=== PATIENT | female | born 1975 | race Caucasian/White ===

== ENCOUNTER 2018-05-02 09:54 | Emergency (ER) | payer BC, OTHER ==
[2018-05-02 10:33] VITALS: BMI 20.7
--- NOTE | 2018-05-02 10:54 | PDOC ---
History of Present Illness - General Chief Complaint: Pain Stated Complaint: ABD PAIN Time Seen by Provider: 05/02/18 10:45 - History of Present Illness Initial Comments: 05/02/18 10:55 The patient is a 42 year old female with a PMH of ectopic who presents to our ED c/o acute onset of abdominal pain. Pain started when patient was walking at work and is "sharp" localized to her B/L lower quadrants and has since resolved. Endorses nausea w/o vomiting. No fevers/chills. Also denies dysuria/hematuria. LMP was March 2018. Patient states she is sexually active with one male partner, her , and he does not ejaculate inside of her as control. No h/o STI's. Last pap smear in 2015 and was normal. NKDA Surgical: L fallopian tube resection. Social: denies toxic habits PMD: None, recieves primary care from household appliance installer @ [facility] As per EMR, patient was evaluated for L tubal in 2011. No previous h/ o of ED evaluation in EMR. Past History - Past Medical History Allergies/Adverse Reactions: Allergies Allergy/AdvReac Type Severity Reaction Status Date / Time No Known Drug Allergies Allergy Verified 05/02/18 10:31 Home Medications: Ambulatory Orders Cholecalciferol (Vitamin D3) [Vitamin D] 400 unit PO 02/10/12 Folic Acid - 2 mg PO DAILY 02/10/12 Vitamin B Complex 1 each PO 02/10/12 Anemia: No Asthma: No Cancer: No Cardiac Disorders: No CVA: No COPD: No CHF: No Dementia: No Diabetes: No GI Disorders: No Disorders: No HTN: No Hypercholesterolemia: No Liver Disease: No Seizures: No Thyroid Disease: No - Suicide/Smoking/Psychosocial Hx Smoking History: Never smoked Have you smoked in the past 12 months: No Information on smoking cessation initiated: No Hx Alcohol Use: No Drug/Substance Use Hx: No Substance Use Type: None Hx Substance Use Treatment: No *Physical Exam - Vital Signs Last Vital Signs Temp Pulse Resp BP Pulse Ox 98.7 F 73 16 112/74 100 05/02/18 10:00 05/02/18 10:00 05/02/18 10:00 05/02/18 10:00 05/02/18 10:00 - Physical Exam General Appearance: Yes: Nourished, Appropriately Dressed HEENT: positive: Normal Voice, Hearing Grossly Normal Neck: positive: Trachea midline, Supple Respiratory/Chest: positive: Lungs Clear. negative: Labored Respiration, Rapid RR Cardiovascular: positive: S1, S2. negative: Edema, JVD Gastrointestinal/Abdominal: positive: Normal Bowel Sounds, Soft. negative: Guarding, Rebound, Tenderness, Hernia, Mass Musculoskeletal: negative: CVA Tenderness (R), CVA Tenderness (L) Extremity: positive: Normal Capillary Refill, Normal Inspection Integumentary: positive: Normal Color, Dry, Warm Neurologic: positive: Fully Oriented, Alert ED Treatment Course - LABORATORY CBC & Chemistry Diagram: 05/02/18 11:33 05/02/18 14:50 Medical Decision Making - Medical Decision Making 05/02/18 11:02 42 year old non-toxic appearing female with B/L pelvic pain. PE significant for suprapubic TTP. DDx includes: adnexal pathology including, ruptured ovarian cyst, ovarian torsion, ectopic as well as UTI, gastritis. Will obtain basic labs, urine , pelvic exam, TVUS. Patient declining pain medication at this time. Reassess. 05/02/18 12:31 No leukocytosis CMP hemolyzed. Urine HCG and Beta HCG positive -- heightened clinical suspicion for ectopic until proven otherwise Patient @ TVUS 05/02/18 14:23 TVUS shows no torsion, R ovarian hemorrhagic cyst (1.7 x 1.6 x 1.6) with free fluid in the adnexa. No IUP visualized, however thickened endometrial stripe c/w early . 05/02/18 15:24 Patient counseled extensively on importance of follow-up with household appliance installer in 2 days for repeat B-HCG and TVUS. 05/02/18 15:45 Call placed to office of Dr. Inez Randolph MD - onjz message regarding need for repeat B-HCG and TVUS. 05/02/18 16:08 CMP unremarkable Beta quant pending 05/02/18 16:14 Beta Quant 1599 - c/w 2-3 week gestation, fits clinical picture of LMP in late March. Patient again counseled on importance of OB-School Community Relations Coordinator follow-up, given copy of labs and TVUS, return precautions and discharged home. I discussed the physical exam findings, ancillary test results and final diagnoses with the patient. I answered all of the patient's questions. The patient was satisfied with the care received and felt comfortable with the discharge plan and treatment plan. The patient will return to the Emergency Department with any new, persistent or worsening symptoms. *DC/Admit/Observation/Transfer Diagnosis at time of Disposition: Abdominal pain - Discharge Dispostion Disposition: HOME Condition at time of disposition: Good Decision to Admit order: No - Referrals Referrals: Deanna Ceballos MD [Staff Physician] - - Patient Instructions Additional Instructions: A copy of your ultrasound and your labs have been provided to you. Your urine and serum tests were positive. You can take Tylenol (up to 4000 mg daily) for your pain. At this time, you are safe for discharge home, however it is very important that you follow-up as instructed in the next 48 hours. Please follow-up with your household appliance installer in the next 2 days for repeat ultrasound and lab work. It is VERY IMPORTANT that you do so to rule out ectopic . We have left a message with your REGIONAL ADMINISTRATIVE ASSISTANT Dr. Inez Randolph MD to update her on your labs and ultrasound. Should you not be able to f/u with your OB-School Community Relations Coordinator, please follow up with Dr. Ceballos (contact information provided). Should you not be able to follow-up with either doctor, return to the Emergency Department for this mandatory testing. Return to the Emergency Department for any new/worsening/concerning symptoms. - Post Discharge Activity
--- NOTE | 2018-05-02 11:00 | PDOC ---
Attending Attestation - HPI HPI: 05/02/18 11:26 The patient is a 42 year old female with a past medical history of ectopic who presents to the emergency department for evaluation of acute abdominal pain. Patient reports acute bilateral lower quadrant abdominal pain ranked 10/10 in severity while walking to work this morning. Patient reports an associated symptom of nausea, but denies vomiting, fevers, chills, and dysuria. - Physicial Exam PE: Vitals: Triage Vital signs reviewed General Appearance: no acute distress, well nourished well developed, Head: Atraumatic, normocephalic Neck: Supple Chest Wall: Nontender Cardiac: Regular rate and rhythm, no murmurs, no rubs, no gallops, Lungs: Clear to auscultation bilateral, good air movement bilaterally, Abdomen: (+)Very mild suprapubic tenderness to palpation. Soft, nondistended. Extremities: Full range of motion to all extremities, no cyanosis, clubbing, or edema Skin: Warm and dry, no rashes or lesions, no petechiae Psych: normal mood, normal affect - Medical Decision Making 05/02/18 11:26 The patient is a 42 year old female with a past medical history of ectopic who presents to the emergency department for evaluation of acute abdominal pain. Plan: Labs Ultrasound Reassess <Hattie Collier - Last Filed: 05/02/18 11:38> - Resident Resident Name: Seema Sánchezica - ED Attending Attestation I have performed the following: I have examined & evaluated the patient, The case was reviewed & discussed with the resident, I agree w/resident's findings & plan, Exceptions are as noted - Medical Decision Making Laboratory analysis noted below for newly diagnosed ultrasound with no evidence of IUP given patient's right-sided pain which has resolved patient will be managed as an ectopic to prevent otherwise Awaiting return of patient's pain hCG otherwise given that she is pain-free she' ll need to return to the emergency department or follow-up with her QUILL CLEANER in 2 days for repeat beta repeat ultrasound Findings, need for follow-up and strict return instructions discussed with patient. <Amilcar Antony - Last Filed: 05/02/18 16:09> Attestations - Attestations Documentation prepared by Hattie Collier, acting as medical staffing coordinator for Amilcar Antony MD. <Hattie Collier - Last Filed: 05/02/18 11:38>
[2018-05-02 11:40] LABS: BASO % 0.3 % (0-2.0); EOS % 0.5 % (0-4.5); HEMATOCRIT 37.2 % (32.4-45.2); HEMOGLOBIN 12.1 GM/dL (10.7-15.3); MCH 28.9 pg (25.7-33.7); MCHC 32.5 g/dl (32.0-36.0); MEAN PLT VOLUME 10.1 fl (7.5-11.1); MONO % 9.5 % (3.8-10.2); NEUT % 68.7 % (42.8-82.8); PLATELET COUNT 171 K/MM3 (134-434); RBC 4.18 M/mm3 (3.60-5.2); WHITE BLOOD COUNT 5.8 K/mm3 (4.0-10.0)
[2018-05-02 11:48] LABS: HCG,QUALITATIVE URINE Positive
[2018-05-02 11:51] LABS: URINE APPEARANCE CLEAR; URINE BILIRUBIN NEGATIVE (<2.0 mg/dL); URINE COLOR STRAW; URINE GLUCOSE (UA) NEGATIVE (NEGATIVE); URINE KETONE NEGATIVE (NEGATIVE); URINE LEUK ESTERASE NEGATIVE (NEGATIVE); URINE NITRITE NEGATIVE (NEGATIVE); URINE PROTEIN NEGATIVE (NEGATIVE); URINE UROBILINOGEN NEGATIVE mg/dL (0.2-1.0)
[2018-05-02 16:02] LABS: ALBUMIN 3.8 g/dl (3.4-5.0); ALK PHOS 42 U/L (45-117); ANION GAP 8 MMOL/L (8-16); BILIRUBIN,TOTAL 0.4 mg/dL (0.2-1); BLOOD UREA NITROGEN 9 mg/dL (7-18); CALCIUM 8.7 mg/dL (8.5-10.1); CHLORIDE 106 mmol/L (98-107); CO2 25 mmol/L (21-32); CREATININE 0.7 mg/dL (0.55-1.3); GLUCOSE,RANDOM 83 mg/dL (74-106); SGOT/AST 15 U/L (15-37); SGPT/ALT 13 U/L (13-61); SODIUM 138 mmol/L (136-145); TOT PROT 7.7 g/dl (6.4-8.2)
[2018-05-02 16:43] VITALS: BP 111/57; PULSE 70; TEMP 98.2
== END 2018-05-02 16:42 | disposition home or self-care (01) ==
LOC: JER 09:54
DX: O26.891 Other specified pregnancy related conditions, first trimester (principal); R10.30 Lower abdominal pain, unspecified; O34.81 Maternal care for other abnormalities of pelvic organs, first trimester; N83.291 Other ovarian cyst, right side; Z3A.01 Less than 8 weeks gestation of pregnancy
CPT/HCPCS: 36415; 76830-TC; 80053; 81003; 84702; 84703; 85025; 87086; 99282-25

== ENCOUNTER 2018-05-04 15:41 | Day surgery (SDC) | payer OTHER ==
[2018-05-04 15:47] VITALS: BMI 21.4
--- NOTE | 2018-05-04 15:50 | PDOC ---
Rapid Medical Evaluation Chief Complaint: Pain, Acute Time Seen by Provider: 05/04/18 15:44 Medical Evaluation: Allergies Allergy/AdvReac Type Severity Reaction Status Date / Time No Known Drug Allergies Allergy Verified 05/02/18 10:31 05/04/18 15:45 I have performed a brief in-person evaluation of this patient. The patient presents with a chief complaint of: sent for + ruptured ectopic noted on left side at APPLICATION ENGINEER, pain started this AM , Seen here Wednesday, and noted Pertinent physical exam findings: LMP 03/25- + hx of ectopic Preg ON Right side 2011. pale, I have ordered the following: CBC, CMP, Type and Screen, BHcG The patient will proceed to the ED/ taken to room 5 for further evaluation. 05/04/18 15:50 05/04/18 15:51
--- NOTE | 2018-05-04 15:54 | PDOC ---
History of Present Illness - General Chief Complaint: Pain, Acute Stated Complaint: PCP SENT Time Seen by Provider: 05/04/18 15:44 - History of Present Illness Initial Comments: 42yo A2 currently 2 weeks with history of ectopic in 2011 sent by her billet sawyer physician, Dr. Inez Randoplh, for ultrasound- detected ruptured ectopic in the left fallopian tube with abdominal free fluid. Last menstrual period on 03/29/18. Patient presented to the ED on Wednesday for abdominal pain which subsided that evening. Lab work indicated she was . She was instructed to follow up with her billet sawyer because TVUS did not confirm intrauterine . Patient reports that the 10/12 abdominal pain returned today and she noticed some vaginal spotting last evening. Previous ectopic was removed surgically leaving an intact left fallopian tube. Patient denies contractions. No fever, chills, chest pain, shortness of breath , nausea, or vomiting. 05/04/18 19:21 Past History - Past Medical History Allergies/Adverse Reactions: Allergies Allergy/AdvReac Type Severity Reaction Status Date / Time No Known Drug Allergies Allergy Verified 05/04/18 15:47 Home Medications: Ambulatory Orders NK [No Known Home Medication] 05/04/18 Anemia: No Asthma: No Cancer: No Cardiac Disorders: No CVA: No COPD: No CHF: No Dementia: No Diabetes: No GI Disorders: No Disorders: No HTN: No Hypercholesterolemia: No Liver Disease: No Seizures: No Thyroid Disease: No - Surgical History Abdominal Surgery: (ECTOPIC ) - Suicide/Smoking/Psychosocial Hx Smoking History: Never smoked Have you smoked in the past 12 months: No Hx Alcohol Use: No Drug/Substance Use Hx: No Substance Use Type: None Hx Substance Use Treatment: No Review of Systems - Review of Systems Comments:: Constitutional: no fever, no chills HEENT: no throat pain, no dysphagia Cardiovascular: no chest pain, no palpitations Respiratory: no cough, no shortness of breath Gastrointestinal: +abdominal pain, no nausea, no vomiting Genitourinary: no dysuria, no frequency Musculoskeletal: no myalgia, no arthralgia Skin: no rash, no itching Neurologic: no headache, no dizziness *Physical Exam - Vital Signs Last Vital Signs Temp Pulse Resp BP Pulse Ox 98.7 F 92 H 18 105/72 100 05/04/18 15:44 10/31/18 15:44 05/04/18 15:44 05/04/18 15:44 05/04/18 15:44 - Physical Exam Comments: General: Awake, alert, and fully oriented, in no acute distress Head: no signs of trauma Eyes: EOMI, sclera anicteric ENT: Moist mucus membranes Neck: Normal ROM, supple Lungs: Lungs clear, Normal breath sounds Cardio: Regular rhythm, S1 and S2 present Abdomen: Tender to palpation in suprapubic area; Soft, non-distended No guarding , no rebound, no masses Extremities: Normal range of motion, Distal pulses present SKIN: Warm, Dry, normal turgor Neurologic: Cranial nerves II through XII grossly intact. Normal speech ED Treatment Course - LABORATORY CBC & Chemistry Diagram: 05/04/18 16:00 05/04/18 16:00 Medical Decision Making - Medical Decision Making 42yo A2 currently 2 weeks with history of ectopic in 2011 sent by her billet sawyer doctor for ultrasound-detected ruptured ectopic in the left fallopian tube with abdominal free fluid -Pre-surgical labs -Last meal around 12noon -Patient stable, on the monitor -Does not want anything for pain -2 units of type and crossed blood ordered on standby for surgery: patient consented to transfusion -Dr. Inez Randolph, patient's billet sawyer, spoke with nurse housekeeper caregiver regarding coordination of the surgery -Patient left the department *DC/Admit/Observation/Transfer Diagnosis at time of Disposition: Ectopic , tubal Qualifiers: Intrauterine status: without intrauterine Laterality: left Qualified Code(s): O00.102 - Left tubal without intrauterine - Discharge Dispostion Condition at time of disposition: Guarded Decision to Admit order: Yes - Referrals - Patient Instructions - Post Discharge Activity
--- NOTE | 2018-05-04 15:58 | PDOC ---
Attending Attestation - Resident Resident Name: Araseli Leung - ED Attending Attestation I have performed the following: I have examined & evaluated the patient, The case was reviewed & discussed with the resident, I agree w/resident's findings & plan, Exceptions are as noted - HPI HPI: 05/04/18 16:54 42-year-old female, 4 para 1, LMP of 03/29/18, with previous history of ectopic presents with abdominal pain and vaginal bleeding. Patient diagnosed with a ruptured ectopic by FUR FINISHER SEAMSTRESS referred to the ER. - Physicial Exam PE: 05/04/18 16:56 Patient is awake and alert, well-appearing, in no distress patient is normotensive Normocephalic and atraumatic CTA RRR JUSTIN CARR - Medical Decision Making 05/04/18 16:57 42-year-old female, 4 para 1, at approximately 4 weeks gestation violently presents with a ruptured ectopic diagnosed by an outside OB. Will type and cross for 2 units. Will administer IV fluids. 2 large-bore IVs are in place. Will admit to or.
[2018-05-04 16:13] LABS: BASO % 0.3 % (0-2.0); EOS % 0.6 % (0-4.5); HEMATOCRIT 36.2 % (32.4-45.2); HEMOGLOBIN 11.8 GM/dL (10.7-15.3); LYMPH % 26.8 % (8-40); MCH 28.9 pg (25.7-33.7); MCHC 32.7 g/dl (32.0-36.0); MEAN CELL VOLUME 88.4 fl (80-96); MEAN PLT VOLUME 9.5 fl (7.5-11.1); NEUT % 65.3 % (42.8-82.8); PLATELET COUNT 201 K/MM3 (134-434); RBC 4.09 M/mm3 (3.60-5.2); RDW 14.3 % (11.6-15.6)
[2018-05-04 16:35] LABS: INR 1.08 (0.83-1.09); PROTHROMBIN TIME (PATIENT) 12.8 SEC (9.7-13.0)
[2018-05-04 17:06] LABS: ALBUMIN 3.8 g/dl (3.4-5.0); ALK PHOS 44 U/L (45-117); ANION GAP 10 MMOL/L (8-16); BILIRUBIN,TOTAL 0.3 mg/dL (0.2-1); BLOOD UREA NITROGEN 10 mg/dL (7-18); CALCIUM 8.6 mg/dL (8.5-10.1); CHLORIDE 107 mmol/L (98-107); CO2 22 mmol/L (21-32); CREATININE 0.7 mg/dL (0.55-1.3); GLUCOSE,RANDOM 101 mg/dL (74-106); SGOT/AST 11 U/L (15-37); SGPT/ALT 12 U/L (13-61); SODIUM 140 mmol/L (136-145); TOT PROT 7.8 g/dl (6.4-8.2)
[2018-05-04] MEDS ORDERED: ONDANSETRON 4 MG/2 ML VIAL IVPUSH PRN ×3 (18:12→21:13)
[2018-05-04] MEDS ORDERED: LACTATED RINGERS SOLUTION 1,000 ML IV SCH ×2 (18:15→19:00)
[2018-05-04 18:35] LABS: URINE APPEARANCE CLEAR; URINE BILIRUBIN NEGATIVE (<2.0 mg/dL); URINE COLOR LTYELLOW; URINE GLUCOSE (UA) NEGATIVE (NEGATIVE); URINE KETONE TRACE (NEGATIVE); URINE LEUK ESTERASE TRACE (NEGATIVE); URINE NITRITE NEGATIVE (NEGATIVE); URINE PROTEIN NEGATIVE (NEGATIVE); URINE UROBILINOGEN NEGATIVE mg/dL (0.2-1.0)
[2018-05-04] MEDS ORDERED: oxyCODONE HCL 5 MG TABLET PO PRN ×2 (18:48→21:13)
[2018-05-04] MEDS ORDERED: PROMETHAZINE HCL 25 MG/1 ML VIAL IVPUSH PRN (18:48)
[2018-05-04] MEDS ORDERED: PROPOFOL 20 ML ONE (18:54)
[2018-05-04] MEDS ORDERED: MIDAZOLAM HCL 2 MG/2 ML SINGLE DOSE VIAL ONE (18:55)
[2018-05-04 19:12] LABS: EPI CELLS RARE /HPF (FEW); URINE BACTERIA RARE /hpf (NONE SEEN); URINE MUCUS RARE
[2018-05-04] MEDS ORDERED: DESFLURANE GAS 240 ML BOTTLE IH ONE (19:17)
[2018-05-04] MEDS ORDERED: ceFAZolin SODIUM 1 GM VIAL ONE (19:17)
[2018-05-04] MEDS ORDERED: SODIUM CHLORIDE 0.9% P/F 10 ML VIAL IJ ONE (19:17)
[2018-05-04] MEDS ORDERED: ceFAZolin SODIUM 1 GM VIAL IVPB ONE (19:18)
[2018-05-04] MEDS ORDERED: GLYCOPYRROLATE 0.2 MG/1 ML VIAL ONE (19:59)
[2018-05-04] MEDS ORDERED: NEOSTIGMINE METHYLSULFATE 0.5 MG/ML - 10 ML MDV ONE (20:01)
[2018-05-04] MEDS ORDERED: BUPIVACAINE HCL/PF (5 MG/ML) 30 ML VIAL IJ ONE (20:51)
[2018-05-04] MEDS ORDERED: IBUPROFEN 600 MG TABLET (FP) PO PRN (21:13)
[2018-05-04] MEDS ORDERED: IBUPROFEN 800 MG/8 ML IJ IVPB PRN (21:13)
--- NOTE | 2018-05-04 21:13 | OP ---
Operative Note - Note: Operative Date: 05/04/18 Pre-Operative Diagnosis: 42yo P0 with left recurrent ectopic ovarian , ocluded tubes on Hysterosalpingogram, hemoperetoneum Operation: Laparoscopic partial left salpingectomy, Right salpingectomy, cauterisation of left ovary, evacuation of 150cc hemoperetoneum Findings: 1. Hemoperitoneum 2. Distorted Left and abnormal/occluded right fallopian tubes 3. Left ovarian ectopic Surgeon: Inez Randolph Interceptor Operator: Radha Martell Anesthesiologist/SUCTION PLATE CARRIER CLEANER: Shaggy Park Anesthesia: General Estimated Blood Loss (mls): 150 Drains, Volume Out (mls): 100 Fluid Volume Replaced (mls): 1,000 Operative Report Dictated: Yes
[2018-05-04] MEDS ORDERED: ACETAMINOPHEN 1000 MG/100 ML VIAL (NON FORMULARY) IVPB ONE (21:15)
[2018-05-04] MEDS ORDERED: ELECTROLYTE-148 SOLN 1,000 ML IV SCH (21:15)
--- NOTE | 2018-05-05 07:48 | PN ---
Progress Note (SOAP) - Subjective History of Present Illness: Patient without complaints. Reports tolerating oral intake without nausea or vomiting. Ambulating without dizziness. Denies fevers or chills. Pain well controlled with oral pain medication. Passing flatus. - Current Medications Current Medications: Active Medications Lactated Ringer's (Lactated Ringers Solution) 1,000 mls @ 125 mls/hr IV ASDIR GALINA Parenteral Electrolytes (Plasma-Lyte 148 -) 1,000 mls @ 125 mls/hr IV ASDIR GALINA Ibuprofen (Motrin -) 600 mg PO Q6H PRN PRN Reason: FEVER Ibuprofen (Caldolor Injection -) 800 mg IVPB Q6H PRN PRN Reason: PAIN LEVEL 1 - 3 Ondansetron HCl (Zofran Injection) 4 mg IVPUSH Q6H PRN PRN Reason: NAUSEA Oxycodone HCl (Roxicodone -) 10 mg PO Q4H PRN PRN Reason: PAIN LEVEL 7 - 10 Oxycodone HCl (Roxicodone -) 5 mg PO Q4H PRN PRN Reason: PAIN LEVEL 4 - 6 - Objective Vital Signs: Vital Signs Temperature 98.4 F 05/05/18 04:54 Pulse Rate 78 05/05/18 04:54 Respiratory Rate 20 05/05/18 04:54 Blood Pressure 103/61 05/05/18 04:54 O2 Sat by Pulse Oximetry (%) 100 05/04/18 22:00 Constitutional: Yes: Well Nourished, No Distress, Calm Cardiovascular: Yes: Regular Rate and Rhythm Respiratory: Yes: Regular, CTA Bilaterally Gastrointestinal: Yes: Normal Bowel Sounds, Soft Musculoskeletal: Yes: WNL Extremities: Yes: WNL Edema: No Wound/Incision: Yes: Clean/Dry, Dressing Dry and Intact Psychiatric: Yes: Alert, Oriented Labs Lab Results: CBC, BMP 05/04/18 16:00 05/04/18 16:00 Assessment/Plan 42 yo s/p laparoscopic partial left salpingectomy, right salpingectomy, ovarian ectopic removal doing well. 1. Continue routine postoperative care. 2. ID - afebrile, will continue to monitor vital signs. 3. Cardiovascular - No acute issues 4. Pulmonary - No issues 5. Urinary - voiding, no issues 6. Gastroinestinal - no signs of ileus at this time, regular diet 7. Gynecology - will follow up pathology 8. Anticipate discharge home today, pending able to ambulate, adequate pain control and urinating without issue.
[2018-05-05 08:06] VITALS: BP 85/40; PULSE 93; TEMP 99.4
[2018-05-05 08:19] LABS: BASO % 0.1 % (0-2.0); HEMATOCRIT 30.2 % (32.4-45.2); HEMOGLOBIN 9.6 GM/dL (10.7-15.3); LYMPH % 12.9 % (8-40); MCH 28.1 pg (25.7-33.7); MCHC 31.8 g/dl (32.0-36.0); MEAN CELL VOLUME 88.4 fl (80-96); MEAN PLT VOLUME 9.8 fl (7.5-11.1); MONO % 5.7 % (3.8-10.2); NEUT % 81.3 % (42.8-82.8); PLATELET COUNT 157 K/MM3 (134-434); RBC 3.41 M/mm3 (3.60-5.2); RDW 14.3 % (11.6-15.6); WHITE BLOOD COUNT 12.8 K/mm3 (4.0-10.0)
--- NOTE | 2018-05-06 17:55 | PATH ---
Surgical Pathology Report Patient Name: ROXANNA VALLE [facility]. Rec. #: [id number] /Age/Gender: 1975 (Age: 42) / F Account: [id number] Location: AMBULATORY SURG Taken: 05/04/2018 Received: 05/05/2018 Reported: 05/06/2018 Physicians: Inez Randolph M.D. PHYSICIAN EMERGENCY DEPT Specimen(s) Received PRODUCTS OF CONCEPTION AND RIGHT PORTION OF FALLOPIAN TUBE Clinical History Ectopic Final Diagnosis PRODUCTS OF CONCEPTION, FALLOPIAN TUBES, RIGHT AND LEFT, LAPAROSCOPIC SALPINGECTOMY: CHORIONIC VILLI IN A BACKGROUND OF HEMORRHAGE CONSISTENT WITH ECTOPIC . FALLOPIAN TUBE WITH PARATUBAL CYST (INCLUDING FIMBRIATED END AND FULL LUMINAL PORTION). FALLOPIAN TUBE WITH FOCAL ADHESIONS (INCLUDING FIMBRIATED END AND FULL LUMINAL PORTION). Electronically Signed Caitie Kohler M.D. Gross Description Received in formalin labeled "products of conception, portion right and left fallopian tube" are 2 separate segments of fimbriated, grover-trejo, grossly unremarkable, undesignated fallopian tubes measuring 3 x 1 cm, each. One of the fallopian tubes has a small paratubal cyst measuring 0.2 cm in greatest dimension. Separately in the container are multiple fragments of blood clot measuring 10 x 10 x 3 cm in aggregate. Within the clot is a 1 cm, trejo variegated tissue possibly consistent with gestational sac. Funding Coordinator sections are submitted in 3 casettes as follows: 1- blood clot; 2- fallopian tube with paratubal cyst; 3- fallopian tube. MLSZ/05/05/2018 sancarina/05/05/2018
--- NOTE | 2018-05-16 15:01 | OP ---
DATE OF OPERATION: 05/04/2018 PREOPERATIVE DIAGNOSIS: A 42-year-old para 1 left recurrent ectopic ovarian , occluded tubes, hysterosalpingogram previously, hemoperitoneum. PROCEDURE: Laparoscopic partial left salpingectomy, right salpingectomy, cauterization of the left ovary, evacuation of ovarian ectopic and 150 mL of hemoperitoneum. FINDINGS: Hemoperitoneum, distorted left and abnormal occluded right fallopian tubes, and left ovarian ectopic . SURGEON: Inez Randolph MD DIPPER FISH: Radha Martell MD ANESTHESIOLOGIST: Shaggy Park MD ANESTHESIA: General. DESCRIPTION OF OPERATIVE PROCEDURE: After ensuring informed consent, the patient was brought to the operating room where she was placed in dorsal lithotomy position. Abdomen and perineum were prepped and draped in a sterile fashion. HUMI manipulator was placed into the cervical canal and balloon insufflated. Alva catheter placed under sterile conditions. Abdominally 5-mm hysteroscope assembled wide balanced. Infraumbilical incision was made with a scalpel, and Veress needle was introduced atraumatically. Proper entry was verified with water drop test. Abdomen was insufflated with CO2 gas with gradually increasing pressures from 4 mmHg to 15 mmHg. The Optiview hysteroscope with the 5-mm scope was introduced into the abdomen atraumatically. Excellent visualization was child. There were no significant abdominal adhesions noted. Proper placement was documented. Subsequently, 2 more trocars were introduced under direct visualization, one 10 mm in the right lower quadrant and a 5 mm in the left lower quadrant. In the posterior cul-de-sac approximately 150 mL of clotted blood was noted. Left fallopian tube was distorted and was abutting on the ectopic , which was sitting on top of the left ovary. Right fallopian tube was dilated. LigaSure was used to dissect off both fallopian tubes, and ectopic was dislodged. All of that was placed in the posterior cul-de-sac, bilateral fallopian tubes and ectopic . The left ovary was found to be bleeding at the place of the attachment of the ectopic . The ovarian base was cauterized with a spatula. EndoCatch bag was introduced through the 10-mm port. All contents of the posterior cul-de-sac were collected into the EndoCatch bag and evacuated. Subsequently, abdomen was irrigated. Excellent hemostasis was noted, but the left ovarian base was still oozing slightly, so Surgicel was introduced through the port was placed on top of the ovary at which point excellent hemostasis was noted. The 10-mm port fascia was closed with 0 Vicryl with 2 interrupted sutures. The skin was closed with Monocryl, and Marcaine solution was injected subcutaneously. The patient was placed back into supine position after HUMI manipulator and the Alva catheter were removed. Instrument and sponge count were correct x2. The patient was extubated and brought to the recovery room in stable condition. Estimated blood loss 150 mL. Urine output 100 mL. The patient received 1000 mL of IV fluids. Roselyn [id number]
== END 2018-05-05 13:00 | disposition home or self-care (01) ==
LOC: JER 15:41 → JASUSAT 23:12 → J3W 23:18 → JASUSAT 05-05 13:00
PROVIDERS: ATTEND Obstetrics & Gynecology
PROC: 0UT54ZZ Resection of Right Fallopian Tube, Percutaneous Endoscopic Approach (ICD-10-PCS; 2018-05-04)
PROC: 0UB14ZZ Excision of Left Ovary, Percutaneous Endoscopic Approach (ICD-10-PCS; 2018-05-04)
PROC: 10T24ZZ Resection of Products of Conception, Ectopic, Percutaneous Endoscopic Approach (ICD-10-PCS; 2018-05-04)
PROC: 0UB64ZZ Excision of Left Fallopian Tube, Percutaneous Endoscopic Approach (ICD-10-PCS; principal; 2018-05-04 19:00)
DX: O00.202 Left ovarian pregnancy without intrauterine pregnancy (principal); K66.1 Hemoperitoneum
CPT/HCPCS: 36415; 80053; 81003; 81015; 84702; 85025; 85610; 86850; 86900; 86901; 86922; 88305-TC; 94760; 99284-25; J0131